=== PATIENT | male | born 1985 | race African-American/Black ===

== ENCOUNTER 2017-04-21 19:08 | Emergency (ER) | payer OTHER ==
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
[~2017-04-21 19:08] MED LIST: HYDROCHLOROTHIA25 MG PO; NO MEDICATIONS; ZYVOX600 MG PO
[2017-04-21 22:23] LABS: URINE APPEARANCE CLEAR; URINE BILIRUBIN NEG (NEG); URINE BLOOD NEG (NEG); URINE COLOR DK YELLOW; URINE GLUCOSE NEG (NEG); URINE KETONE TRACE (NEG); URINE LEUKOCYTE ESTERASE 1+ (NEG); URINE NITRATE NEG (NEG); URINE PROTEIN TRACE (NEG); URINE SPECIFIC GRAVITY 1.033 (1.003-1.035)
[2017-04-21 22:24] LABS: CULTURE INDICATED? YES; URINE BACTERIA AUWI NEG (NEGATIVE); URINE SQUAMOUS EPITHELIAL CELL OCC /[HPF]
[2017-04-21 22:32] LABS: URINE GRANULAR CAST 0-2 /[HPF]; URINE MUCUS PRESENT
[2017-04-21 23:36] LABS: BASOPHIL% 0.9 % (0-2.5); EOSINOPHIL# 0.1 X10e3 (0-0.7); EOSINOPHIL% 2.5 % (0.0-7.0); HEMATOCRIT 39.3 % (38.0-50.0); HEMOGLOBIN 12.7 gm/dL (13.0-16.0); LYMPHOCYTE# 1.8 X10e3 (1.0-3.5); LYMPHOCYTE% 55.6 % (17.0-45.0); MEAN CELL VOLUME 90.1 FL (83-96); MEAN CORPUSCULAR HEMOGLOBIN 29.1 PG (28-34); MEAN CORPUSCULAR HGB CONC 32.4 g/dL (30-36); MEAN PLATELET VOLUME 9.8 FL (6.5-11.5); MONOCYTE# 0.3 X10e3 (0-1.0); MONOCYTE% 8.3 % (3.0-12.0); NEUTROPHIL% 32.7 % (40-75); PLATELET COUNT 187 X10e3 (140-420); RED BLOOD COUNT 4.36 X10e (3.90-5.60); RED CELL DISTRIBUTION WIDTH 14.2 % (11.0-15.5); WHITE BLOOD COUNT 3.2 X10e3 (4.0-10.5)
[2017-04-21 23:37] LABS: DIFF IND YES
[2017-04-21 23:56] LABS: ANISOCYTOSIS SL; DIFFERENTIAL COMMENT OCC.GIA.PLTD; PLATELET ESTIMATE NORMAL (NORMAL)
[2017-04-22 00:37] LABS: CALCIUM SERUM 8.7 mg/dL (8.4-10.2); CREATININE SERUM 1.1 mg/dL (0.6-1.4); GLOM FILT RATE Estimated 103.1 mL/min (>60); POTASSIUM 3.7 mmol/L (3.5-5.1)
== END 2017-04-22 02:00 | disposition home or self-care (01) ==
LOC: CFTX 19:08 → CED 19:08 → CFTX 20:17 → CED 20:17
PROVIDERS: Nurse Practitioner Family
DX: S32.029A Unspecified fracture of second lumbar vertebra, initial encounter for closed fracture (principal); S32.039A Unspecified fracture of third lumbar vertebra, initial encounter for closed fracture; F17.210 Nicotine dependence, cigarettes, uncomplicated; Y09 Assault by unspecified means; Y92.009 Unspecified place in unspecified non-institutional (private) residence as the place of occurrence of the external cause
CPT/HCPCS: 36415; 74177; 80048; 81003; 85025; 87086; 96361; 96374; 99284; J2270; Q9967